=== PATIENT | male | born 1960 | race Caucasian/White ===

== ENCOUNTER 2019-05-16 10:27 | Emergency (ER) | payer SELFPAY ==
[~2019-05-16 10:27] MED LIST: EPINEPHrine 1 MG/10 ML Abboject SYRINGE ONE; Sodium Bicarb 50 MEQ/50 ML Abboject 8.4% SYRINGE ONE
[2019-05-16] MEDS ORDERED: Norepinephrine 4 MG/4 ML VIAL ONE (10:38)
[2019-05-16 10:54] LABS: INR-International Normal Ratio 1.8; PTT 43.4 SEC (22.9-36.1); Prothrombin Time 20.7 SEC (12.0-14.7)
[2019-05-16 11:01] LABS: ALT (SGPT) 113 U/L (8-55); AST (SGOT) 234 U/L (5-34); Albumin 2.2 g/dL (3.5-5.0); Alkaline Phosphatase 225 U/L (40-150); Anion Gap 41 mmol/L (10-20); BUN (Urea Nitrogen) 89 mg/dL (8.4-25.7); Bilirubin, Total 1.5 mg/dL (0.2-1.2); Calc. Creatinine Clearance 0 mL/min (70-130); Calcium 9.7 mg/dL (7.8-10.44); Carbon Dioxide 11 mmol/L (22-29); Chloride 97 mmol/L (98-107); Estimated GFR-MDRD 15; Globulin 2.5 g/dL (2.4-3.5); Glucose 62 mg/dL (70-105); Potassium 3.7 mmol/L (3.5-5.1); Protein, Total 4.7 g/dL (6.0-8.3); Sodium 145 mmol/L (136-145)
[2019-05-16 11:02] LABS: Band 33 % (5-11); Hemoglobin 16.2 g/dL (14.0-18.0); Lymphocytes 20 % (21-51); MDiff Complete? YES; Mean Corpuscular HGB CONC 30.6 g/dL (32.0-36.0); Mean Corpuscular Hemoglobin 29.5 pg (27.0-31.0); Mean Corpuscular Volume 96.3 fL (78.0-98.0); Mean Platelet Volume 9.7 fL (7.4-10.4); Metamyelocyte 12 % (0-0); Myelocyte 2 % (0-0); Neutrophil 32 % (42-75); Platelet Count 255 thou/uL (130-400); RBC Distribution Width 12.2 % (11.5-14.5); Red Blood Cell (RBC) Count 5.51 mill/uL (4.70-6.10); White Blood Cell (WBC) Count 45.6 thou/uL (4.8-10.8)
[2019-05-16] MEDS ORDERED: Pantoprazole 40 MG VIAL ONE (11:02)
[2019-05-16 11:05] LABS: Toxic Granulation MARKED
[2019-05-16] MEDS ORDERED: EPINEPHrine 1 MG/10 ML Abboject SYRINGE ONE (11:06)
[2019-05-16] MEDS ORDERED: cefTRIAXone\\ROCEPHIN 1 GM VIAL ONE (11:08)
== END 2019-05-16 11:30 | disposition short-term general hospital (02) ==
LOC: BURERS 10:27
DX: I46.9 Cardiac arrest, cause unspecified (principal)
CPT/HCPCS: 36415; 51702; 80053; 84484; 85025; 85610; 85730; 92950; 96365; 96374; 96375; C9113; J0171; J0696